=== PATIENT | male | born 1985 | race Caucasian/White ===

== ENCOUNTER → 2020-04-24 | Outpatient (CLI) | payer BC ==
[~2020-04-24] MED LIST: CYCL5TAB PO; HYDR-3240 PO
[2020-04-24 16:02] LABS: BASOPHILS % (AUTO) 1 % (0-1); EOSINOPHILS % (AUTO) 1 % (1-7); LYMPHOCYTES % (AUTO) 23 % (22-44); MEAN PLATELET VOLUME 7.6 fL (7.4-10.4); MONOCYTES % (AUTO) 8 % (2-9); NEUTROPHILS % (AUTO) 68 % (42-75); PLATELET COUNT 285 x10^3/uL (130-400); RED BLOOD COUNT 5.94 x10^6/uL (4.38-5.82); RED CELL DISTRIBUTION WIDTH 13.2 % (9.4-14.8)
[2020-04-24 16:04] LABS: MICROSCOPIC NOT IND
[2020-04-24 16:10] LABS: MEAN CORPUSCULAR HEMOGLOBIN 30.1 pg (27.5-34.5)
[2020-04-24 16:14] LABS: ANION GAP 5 mmol/L (5-15); CALCIUM 9.8 mg/dL (8.5-10.1); CHLORIDE 108 mmol/L (98-107); INTERNATIONAL NORMALIZED RATIO 1.04 (0.93-1.1); PROTHROMBIN TIME 10.7 Seconds (9.6-11.5)
[2020-04-24 18:01] LABS: MD MORPH REVIEW ONLY
[2020-04-24 18:03] LABS: <RBC MORPHOLOGY> NORMAL
[2020-04-24 18:04] LABS: <PLATELET ESTIMATE> ADEQUATE; <PLT MORPHOLOGY> NORMAL PLT MORPH
== END | disposition home or self-care (01) ==
LOC: STAR 14:56
PROVIDERS: ATTEND Neurological Surgery
DX: Z01.818 Encounter for other preprocedural examination (principal); Z20.828 Contact with and (suspected) exposure to other viral communicable diseases; M54.16 Radiculopathy, lumbar region; M51.26 Other intervertebral disc displacement, lumbar region; M48.061 Spinal stenosis, lumbar region without neurogenic claudication; M43.06 Spondylolysis, lumbar region; R79.1 Abnormal coagulation profile; R82.90 Unspecified abnormal findings in urine; R94.31 Abnormal electrocardiogram [ECG] [EKG]
CPT/HCPCS: 36415; 71046; 80048; 81003; 85025; 85610; 85730; 87635; 93005

== ENCOUNTER 2020-04-28 07:42 | Inpatient (IN) | payer BC ==
[~2020-04-28] VITALS: Ht 177.8 cm; Wt 98.8 kg
[~2020-04-28 07:42] MED LIST changes: +BACITRACIN 50,000 UNIT ONE; +EPINEPHRINE 1 MG/ML, 1ML ONE; +THROMBIN 5,000 UNIT VIAL TP ONE
[2020-04-28] MEDS ORDERED: CHLORHEXIDINE 15 ML UDC MM STA (07:53)
[2020-04-28] MEDS ORDERED: LACTATED RINGERS 1,000 ML IV SCH (07:55)
[2020-04-28] MEDS ORDERED: FENTANYL PF 250 MCG/5ML ONE ×3 (08:56→10:57)
[2020-04-28] MEDS ORDERED: MIDAZOLAM 1 MG/ML, 2ML ONE (08:56)
[2020-04-28] MEDS ORDERED: SCOPOLAMINE 1MG PATCH TD ONE ×2 (09:30)
[2020-04-28] MEDS: BUPIVACAINE/PF 0.25% ONE ×2 (10:04→10:22)
[2020-04-28] MEDS ORDERED: PROPOFOL 50 ML ONE ×2 (10:29→11:05)
[2020-04-28] MEDS ORDERED: CEFAZOLIN 1,000 MG ONE (11:24)
[2020-04-28] MEDS ORDERED: ROCURONIUM 10MG/ML,5ML ONE (11:24)
[2020-04-28] MEDS ORDERED: DEXAMETHASONE 4 MG/ML, 1ML ONE (11:24)
[2020-04-28] MEDS ORDERED: SUCCINYLCHOLINE 20 MG/ML, 10ML ONE (11:24)
[2020-04-28] MEDS ORDERED: NEOSTIGMINE 1 MG/ML, 10ML ONE (11:24)
[2020-04-28] MEDS ORDERED: ONDANSETRON 2MG/ML, 2ML ONE (11:24)
[2020-04-28] MEDS ORDERED: GLYCOPYRROLATE 0.2MG/1ML, 5ML ONE (11:24)
[2020-04-28] MEDS ORDERED: PROPOFOL 10 MG/ML, 20ML ONE (11:24)
[2020-04-28] MEDS ORDERED: NEOSPORIN OINT, 15GM ONE (11:31)
[2020-04-28] MEDS ORDERED: HYDROcodone/APAP 7.5-325MG/15ML UDC PO PRN (12:00)
[2020-04-28] MEDS ORDERED: LABETALOL 5MG/ML, 20ML IV PRN (12:00)
[2020-04-28] MEDS ORDERED: DIPHENHYDRAMINE 50 MG/ML, 1ML IVPush PRN ×2 (12:00→14:30)
[2020-04-28] MEDS ORDERED: HYDROmorphone 1 MG/ML, 1ML INJ IVPush PRN (12:00)
[2020-04-28] MEDS ORDERED: hydrALAzine 20 MG/ML, 1ML IV PRN (12:00)
[2020-04-28] MEDS ORDERED: PROMETHAZINE 25 MG/ML, 1ML IVPush PRN (12:00)
[2020-04-28] MEDS ORDERED: HALOPERIDOL 5 MG/ML IV PRN (12:00)
[2020-04-28] MEDS ORDERED: HYDROcodone/APAP 7.5-325MG/15ML UDC ONE (12:11)
[2020-04-28] MEDS ORDERED: FENTANYL PF 100 MCG/2ML ONE ×2 (12:11→12:31)
[2020-04-28] MEDS ORDERED: MEPERIDINE/PF 25MG/ML,1ML ONE (12:22)
[2020-04-28] MEDS: MEPERIDINE/PF 25MG/0.5ML IVPush PRN ×2 (12:24→12:44)
[2020-04-28] MEDS: FENTANYL PF 100 MCG/2ML IV PRN ×3 (12:26→12:37)
[2020-04-28] MEDS ORDERED: METHOCARBAMOL 1,000 MG in DEXTROSE 5% 100 ML IV ONE (12:30)
[2020-04-28 13:40] VITALS: BP 131/80
[2020-04-28] MEDS ORDERED: HYDROmorphone 2MG TABLET ONE (13:45)
[2020-04-28] MEDS: HYDROmorphone 2MG TABLET PO PRN ×4 (13:50→23:40)
[2020-04-28] MEDS: LABETALOL 5MG/ML, 20ML IV SCH ×2 (14:25→22:21)
[2020-04-28] MEDS ORDERED: PROMETHAZINE 25 MG/ML, 1ML IM PRN (14:30)
[2020-04-28] MEDS ORDERED: OXYcodone IR 5MG TABLET PO PRN (14:30)
[2020-04-28] MEDS ORDERED: MAGNESIUM HYDROXIDE 8%, 30ML UDC PO PRN (14:30)
[2020-04-28] MEDS ORDERED: HYDROcodone/APAP 5/325 TABLET PO PRN (14:30)
[2020-04-28] MEDS ORDERED: DIPHENHYDRAMINE 50 MG/ML, 1ML IM PRN (14:30)
[2020-04-28] MEDS ORDERED: HYDROmorphone 2 MG/ML, 1ML IM PRN (14:30)
[2020-04-28] MEDS ORDERED: BISACODYL 10 MG SUPP PR PRN (14:30)
[2020-04-28] MEDS ORDERED: DIPHENHYDRAMINE 25 MG CAPSULE PO PRN (14:30)
[2020-04-28] MEDS ORDERED: ONDANSETRON 2MG/ML, 2ML IV PRN (14:30)
[2020-04-28] MEDS: OXYcodone IR 5MG TABLET PO PRN ×2 (16:34→20:36)
[2020-04-28] MEDS: CEFAZOLIN PMX 1GM/50ML 50 ML IVPB SCH (18:45)
[2020-04-28] MEDS ORDERED: CEFAZOLIN PMX 1GM/50ML 50 ML IVPB SCH (19:00)
[2020-04-28 19:21] VITALS: BP 94/56
[2020-04-28] MEDS: METHOCARBAMOL 750 MG TABLET PO SCH (19:22)
[2020-04-28] MEDS: NS + 20MEQ KCL 1,000 ML IV SCH (19:23)
[2020-04-28 22:20] VITALS: BP 112/63
[2020-04-28 23:43] VITALS: BP 111/68
[2020-04-29] MEDS: CEFAZOLIN PMX 1GM/50ML 50 ML IVPB SCH (02:04)
[2020-04-29] MEDS: OXYcodone IR 5MG TABLET PO PRN ×6 (02:10→22:23)
[2020-04-29] MEDS: HYDROmorphone 2MG TABLET PO PRN ×5 (03:40→21:18)
[2020-04-29] MEDS: METHOCARBAMOL 750 MG TABLET PO SCH ×3 (03:40→20:28)
[2020-04-29 04:24] VITALS: BP 126/71
[2020-04-29] MEDS: NS + 20MEQ KCL 1,000 ML IV SCH ×2 (05:30→12:42)
[2020-04-29] MEDS: LABETALOL 5MG/ML, 20ML IV SCH ×3 (05:33→22:24)
[2020-04-29 07:27] VITALS: BP 123/63
[2020-04-29] MEDS: SENNA/DOCUSATE TABLET PO SCH (08:23)
[2020-04-29] MEDS: ENOXAPARIN 40 MG/0.4 ML SQ SCH (12:09)
[2020-04-29 13:53] VITALS: BP 115/68
[2020-04-29 18:58] VITALS: BP 120/61
[2020-04-30 01:19] VITALS: BP 120/60
[2020-04-30] MEDS: HYDROmorphone 2MG TABLET PO PRN ×4 (01:22→13:36)
[2020-04-30] MEDS: NS + 20MEQ KCL 1,000 ML IV SCH ×2 (01:25→11:27)
[2020-04-30] MEDS: OXYcodone IR 5MG TABLET PO PRN ×3 (02:20→11:01)
[2020-04-30] MEDS: METHOCARBAMOL 750 MG TABLET PO SCH ×3 (04:17→13:35)
[2020-04-30] MEDS: LABETALOL 5MG/ML, 20ML IV SCH (05:27)
[2020-04-30 07:12] VITALS: BP 130/74
[2020-04-30] MEDS ORDERED: OXYC5TAB3 PO (08:00)
[2020-04-30] MEDS ORDERED: METH750T2 PO (08:00)
[2020-04-30] MEDS: SENNA/DOCUSATE TABLET PO SCH (09:35)
[2020-04-30] MEDS: ENOXAPARIN 40 MG/0.4 ML SQ SCH (11:27)
[2020-04-30 13:31] VITALS: BP 132/81
== END 2020-04-30 14:34 | disposition home or self-care (01) | DRG 520 ==
LOC: OUT 07:42 → 4NE 13:21 → OUT 13:24 → 4NE 13:24
PROVIDERS: ADMIT Neurological Surgery; ATTEND Neurological Surgery
PROC: 00NY0ZZ Release Lumbar Spinal Cord, Open Approach (ICD-10-PCS; 2020-04-28)
PROC: 0SB20ZZ Excision of Lumbar Vertebral Disc, Open Approach (ICD-10-PCS; 2020-04-28)
PROC: 4A11X4Z Monitoring of Peripheral Nervous Electrical Activity, External Approach (ICD-10-PCS; 2020-04-28)
PROC: 01NB0ZZ Release Lumbar Nerve, Open Approach (ICD-10-PCS; principal; 2020-04-28 10:00)
DX: M48.061 Spinal stenosis, lumbar region without neurogenic claudication (principal); M47.26 Other spondylosis with radiculopathy, lumbar region; Z88.0 Allergy status to penicillin
CPT/HCPCS: 72100; 95938; 95941; C1729; G0378; J0171; J0690; J1100; J1650; J2175; J2250; J2405; J2704; J2710; J3010; J3490; J0330; J2800; J7120